=== PATIENT | female | born 1965 | race Caucasian/White ===

== ENCOUNTER → 2016-07-12 | Outpatient (CLI) | payer BC | LOC: RAD 11:30 | DX: R10.9 Unspecified abdominal pain (principal); N20.0 Calculus of kidney; K76.0 Fatty (change of) liver, not elsewhere classified | CPT/HCPCS: Q9967 ==

== ENCOUNTER → 2019-08-26 | Outpatient (CLI) | payer OTHER | LOC: LAB 13:36 | DX: R05 Cough (principal) ==

== ENCOUNTER → 2021-08-11 | Outpatient (CLI) | payer BC | LOC: RAD 15:48 | DX: M54.6 Pain in thoracic spine (principal); S69.92XA Unspecified injury of left wrist, hand and finger(s), initial encounter; S59.912A Unspecified injury of left forearm, initial encounter ==